=== PATIENT | female | born 2000 | race African-American/Black ===

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

== ENCOUNTER 2022-10-03 17:42 | Emergency (ER) | payer OTHER ==
[~2022-10-03] VITALS: Ht 175.3 cm; Wt 59.0 kg
[2022-10-03 17:52] VITALS: BP 136/81
[2022-10-03] MEDS ORDERED: ACETAMINOPHEN 325MG TABLET PO ONE (18:15)
== END 2022-10-03 19:07 | disposition left against medical advice (07) ==
LOC: ER 17:42
DX: S09.90XA Unspecified injury of head, initial encounter (principal); Y08.89XA Assault by other specified means, initial encounter; Y93.89 Activity, other specified; Y92.89 Other specified places as the place of occurrence of the external cause; Y99.8 Other external cause status; J45.909 Unspecified asthma, uncomplicated; Z88.0 Allergy status to penicillin
CPT/HCPCS: 70486; 99284

== ENCOUNTER 2022-10-03 23:29 | Emergency (ER) | payer OTHER | END 2022-10-03 23:59 | disposition left against medical advice (07) | LOC: ER 23:29 | DX: Z53.21 Procedure and treatment not carried out due to patient leaving prior to being seen by health care provider (principal) ==